=== PATIENT | male | born 1965 | race Caucasian/White ===

== ENCOUNTER 2020-06-15 21:59 | Emergency (ER) | payer OTHER ==
[2020-06-15 22:44] VITALS: TEMP 98.2; BMI 29.7
[2020-06-16 00:46] LABS: URINE APPEARANCE CLEAR; URINE BILIRUBIN NEGATIVE (NEGATIVE); URINE COLOR YELLOW; URINE GLUCOSE (UA) NEGATIVE (NEGATIVE); URINE KETONE 1+ (NEGATIVE); URINE LEUK ESTERASE NEGATIVE (NEGATIVE); URINE NITRITE NEGATIVE (NEGATIVE); URINE PROTEIN NEGATIVE (NEGATIVE); URINE UROBILINOGEN 0.2 mg/dL (0.2-1.0)
[2020-06-16 03:25] VITALS: BP 136/84; PULSE 88
== END 2020-06-16 03:24 | disposition home or self-care (01) ==
LOC: JER 21:59
DX: N50.811 Right testicular pain (principal); N40.1 Benign prostatic hyperplasia with lower urinary tract symptoms
CPT/HCPCS: 76856-TC; 76870-TC; 81003; 87086; 99285-25

== ENCOUNTER 2020-07-29 06:38 | Emergency (ER) | payer OTHER ==
[2020-07-29 07:08] VITALS: TEMP 97.9; BMI 28.1
[2020-07-29] MEDS ORDERED: ACETAMINOPHEN 325 MG TABLET (FP) PO ONE (07:34)
[2020-07-29] MEDS ORDERED: ACETAMINOPHEN 325 MG TABLET (FP) ONE (07:42)
[2020-07-29 08:46] LABS: URINE APPEARANCE CLEAR; URINE BILIRUBIN NEGATIVE (NEGATIVE); URINE COLOR YELLOW; URINE GLUCOSE (UA) NEGATIVE (NEGATIVE); URINE KETONE NEGATIVE (NEGATIVE); URINE LEUK ESTERASE NEGATIVE (NEGATIVE); URINE NITRITE NEGATIVE (NEGATIVE); URINE PROTEIN NEGATIVE (NEGATIVE); URINE UROBILINOGEN 0.2 mg/dL (0.2-1.0)
[2020-07-29 10:02] VITALS: BP 134/66; PULSE 70
[2020-07-29] MEDS ORDERED: HYDROmorphone HCL CARPU-JECT 2 MG/1 ML DISP.SYRIN IVPUSH ONE (10:04)
[2020-07-29] MEDS ORDERED: HYDROmorphone HCl 2 MG/ML VIAL ONE (10:19)
[2020-07-29 10:25] LABS: BASO % 0.4 % (0-2.0); EOS % 0.6 % (0-4.5); HEMATOCRIT 46.3 % (35.4-49); LYMPH % 16.4 % (8-40); MCH 32.2 pg (25.7-33.7); MCHC 34.6 g/dl (32.0-35.9); MEAN PLT VOLUME 7.6 fl (7.5-11.1); MONO % 4.4 % (3.8-10.2); NEUT % 78.2 % (42.8-82.8); PLATELET COUNT 251 K/MM3 (134-434); RBC 4.98 M/mm3 (4.00-5.60); RDW 13.2 % (11.9-15.9); WHITE BLOOD COUNT 12.1 K/mm3 (4.0-10.0)
[2020-07-29 10:31] LABS: INR 0.95 (0.83-1.09); PROTHROMBIN TIME (PATIENT) 11.7 SEC (9.7-13.0)
[2020-07-29 10:33] LABS: ACTIVATED PTT 32.1 SECONDS (25.2-36.5)
[2020-07-29 10:44] LABS: POTASSIUM 4.4 mmol/L (3.5-5.1)
[2020-07-29 10:46] LABS: ALBUMIN 4.2 g/dl (3.4-5.0); BLOOD UREA NITROGEN 19.9 mg/dL (7-18); CALCIUM 9.8 mg/dL (8.5-10.1)
[2020-07-29 10:49] LABS: CREATININE 0.9 mg/dL (0.55-1.3)
[2020-07-29 10:51] LABS: TOT PROT 7.8 g/dl (6.4-8.2)
[2020-07-29 10:52] LABS: BILIRUBIN,TOTAL 1.7 mg/dL (0.2-1)
== END 2020-07-29 11:50 | disposition home or self-care (01) ==
LOC: JER 06:38
PROC: 3E033GC Introduction of Other Therapeutic Substance into Peripheral Vein, Percutaneous Approach (ICD-10-PCS; principal; 2020-07-29)
DX: N50.811 Right testicular pain (principal)
CPT/HCPCS: 36415; 76870-TC; 80053; 81003; 85025; 85610; 85730; 87086; 87491; 87591; 99284-25

== ENCOUNTER 2021-09-16 06:57 | Emergency (ER) | payer OTHER ==
[2021-09-16 07:35] VITALS: BP 135/83; PULSE 71; TEMP 98.4; BMI 31.3
[2021-09-16] MEDS ORDERED: LIDOCAINE 5% TOPICAL PATCH TP ONE (07:50)
[2021-09-16] MEDS ORDERED: KETOROLAC TROMETHAMINE 30 MG/1 ML VIAL IM ONE (07:51)
[2021-09-16] MEDS ORDERED: KETOROLAC TROMETHAMINE 30 MG/1 ML VIAL ONE (07:54)
[2021-09-16] MEDS ORDERED: LIDOCAINE 5% TOPICAL PATCH ONE (07:54)
== END 2021-09-16 08:44 | disposition home or self-care (01) ==
LOC: JER 06:57 → JERFT 06:57
PROC: 3E023GC Introduction of Other Therapeutic Substance into Muscle, Percutaneous Approach (ICD-10-PCS; principal; 2021-09-16)
DX: M25.561 Pain in right knee (principal)
CPT/HCPCS: 73564-TC-RT-FY; 96372; 99284-25